=== PATIENT | female | born 1975 | race African-American/Black ===

== ENCOUNTER 2019-09-14 05:39 | Emergency (ER) | payer OTHER ==
[~2019-09-14] VITALS: Ht 165.1 cm; Wt 158.8 kg
[2019-09-14 06:17] LABS: ABSOLUTE BASOPHILS 0.1 thou/uL (0.0-0.2); ABSOLUTE EOSINOPHILS 0.3 thou/uL (0.0-0.7); ABSOLUTE LYMPHOCYTES 3.2 thou/uL (0.8-5.3); ABSOLUTE MONOCYTES 0.6 thou/uL (0.0-1.2); ABSOLUTE NEUTROPHILS 5.3 thou/uL (1.6-8.1); BASOPHILS 1.1 %; EOSINOPHILS 2.7 %; HEMATOCRIT 34.8 % (37.0-47.0); HEMOGLOBIN 11.6 gm/dL (12.0-15.0); LYMPHOCYTES 33.8 %; MCH 27.8 pg (26.0-34.0); MCHC 33.3 g/dL (28.0-37.0); MCV 83.4 fL (80.0-100.0); MPV 9.3 fl. (7.2-11.1); NUCLEATED RBCS 0 /100WBC; PLATELET COUNT* 226 thou/uL (150-400); POLYS 56.4 %; RBC 4.18 mil/uL (4.20-5.00); RDW-CV 15.5 % (10.5-14.5); WBC 9.4 thou/uL (4.0-11.0)
[2019-09-14 06:26] LABS: CALCIUM 8.9 mg/dL (8.5-10.1); CREATININE 0.8 mg/dL (0.6-1.3); POTASSIUM 4.8 mmol/L (3.5-5.1)
[2019-09-14 06:29] LABS: INR 0.9; PROTIME 9.7 Seconds (9.20-11.50)
[2019-09-14 06:38] LABS: ALBUMIN 3.1 g/dL (3.4-5.0); TOTAL BILIRUBIN 0.3 mg/dL (<0.1-1.0); TOTAL PROTEIN 7.5 g/dL (6.4-8.2)
[2019-09-14 07:00] LABS: INFLUENZA A ANTIGEN Negative (Negative); INFLUENZA B ANTIGEN Negative (Negative)
[2019-09-14] MEDS ORDERED: PREDNISONE 20 M20 M1 PO (09:02)
[2019-09-14 09:32] VITALS: BP 110/65
--- NOTE | 2019-09-14 13:55 | EKG ---
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 : 1975 Requested By: Mariangel Holloway Order Number: [id number] MD: Theodore Coleman Measurements Intervals [place] Rate: 92 P: 67 [place]: 153 QRS: 13 QRSD: 84 T: -9 QT: 349 QTc: 432 Interpretive Statements Sinus rhythm Low voltage, precordial leads Borderline T abnormalities, inferior leads Compared to ECG 11/23/2005 12:35:47 no change Electronically Signed On 09-14-2019 13:54:53 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
== END 2019-09-14 09:36 | disposition home or self-care (01) ==
LOC: M.ERS 05:39
PROVIDERS: Emergency Medicine
DX: R07.89 Other chest pain (principal); R05 Cough; Z87.01 Personal history of pneumonia (recurrent)

== ENCOUNTER 2020-01-20 09:34 | Emergency (ER) | payer OTHER ==
[~2020-01-20] VITALS: Ht 165.1 cm; Wt 158.8 kg
[~2020-01-20 09:34] MED LIST: PREDNISONE 20 M20 M1 PO
[2020-01-20] MEDS ORDERED: ODOR FREE GARL1 EAC1 PO (09:49)
[2020-01-20] MEDS ORDERED: FISH OIL 1,001000 M3 PO (09:49)
[2020-01-20] MEDS ORDERED: APPLE CIDER VI300 MG PO (09:49)
[2020-01-20] MEDS ORDERED: MICARDIS 20MG T20 M1 PO (09:49)
[2020-01-20] MEDS ORDERED: MELOXICAM7.5 MG PO (09:49)
[2020-01-20 10:34] LABS: ABSOLUTE EOSINOPHILS 0.2 thou/uL (0.0-0.7); ABSOLUTE LYMPHOCYTES 2.3 thou/uL (0.8-5.3); ABSOLUTE MONOCYTES 0.6 thou/uL (0.0-1.2); ABSOLUTE NEUTROPHILS 4.7 thou/uL (1.6-8.1); BASOPHILS 0.2 %; EOSINOPHILS 2.9 %; HEMATOCRIT 36.9 % (37.0-47.0); LYMPHOCYTES 29.6 %; MCH 27.4 pg (26.0-34.0); MCHC 32.7 g/dL (28.0-37.0); MONOCYTES 7.1 %; MPV 9.4 fl. (7.2-11.1); NUCLEATED RBCS 0 /100WBC; PLATELET COUNT* 246 thou/uL (150-400); POLYS 60.2 %; RBC 4.39 mil/uL (4.20-5.00); RDW-CV 14.3 % (10.5-14.5); WBC 7.8 thou/uL (4.0-11.0)
[2020-01-20 10:44] LABS: CALCIUM 8.9 mg/dL (8.5-10.1); CREATININE 0.7 mg/dL (0.6-1.3); POTASSIUM 4.1 mmol/L (3.5-5.1)
[2020-01-20 10:54] LABS: ALBUMIN 3.4 g/dL (3.4-5.0); TOTAL BILIRUBIN 0.2 mg/dL (<0.1-1.0); TOTAL PROTEIN 7.4 g/dL (6.4-8.2)
[2020-01-20 11:41] VITALS: BP 141/80
--- NOTE | 2020-01-20 14:32 | EKG ---
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 : 1975 Requested By: Pranav Issa Order Number: [id number] MD: Eran Sharp Measurements Intervals [place] Rate: 69 P: 56 [place]: 51 QRS: 29 QRSD: 85 T: 10 QT: 409 QTc: 438 Interpretive Statements Sinus rhythm Short [place] interval Low voltage, precordial leads Compared to ECG 09/14/2019 05:44:58 Short [place] interval now present T-wave abnormality no longer present Electronically Signed On 01-20-2020 14:30:23 CDT by Eran Sharp [email or web address] <ELECTRONICALLY SIGNED> By: Eran Sharp MD, [facility] 01/20/20 1430 0959 0959 Eran Sharp MD, [facility] /EPI
== END 2020-01-20 11:41 | disposition home or self-care (01) ==
LOC: M.ERS 09:34
PROVIDERS: Family Medicine
DX: R10.13 Epigastric pain (principal); I10 Essential (primary) hypertension; Z90.49 Acquired absence of other specified parts of digestive tract; Z87.01 Personal history of pneumonia (recurrent); Z88.0 Allergy status to penicillin; Z90.721 Acquired absence of ovaries, unilateral

== ENCOUNTER 2020-03-25 09:29 | Emergency (ER) | payer OTHER ==
[~2020-03-25] VITALS: Ht 165.1 cm; Wt 163.3 kg
[~2020-03-25 09:29] MED LIST changes: +APPLE CIDER VI300 MG PO; +FISH OIL 1,001000 M3 PO; +MELOXICAM7.5 MG PO; +MICARDIS 20MG T20 M1 PO; +ODOR FREE GARL1 EAC1 PO
[2020-03-25] MEDS ORDERED: HYDROCHLOROTHIA25 M2 PO (09:31)
[2020-03-25] MEDS ORDERED: MELOXICAM15 MG PO (09:33)
[2020-03-25 11:05] LABS: ABSOLUTE BASOPHILS 0.1 thou/uL (0.0-0.2); ABSOLUTE EOSINOPHILS 0.2 thou/uL (0.0-0.7); ABSOLUTE LYMPHOCYTES 1.7 thou/uL (0.8-5.3); ABSOLUTE MONOCYTES 0.5 thou/uL (0.0-1.2); ABSOLUTE NEUTROPHILS 4.9 thou/uL (1.6-8.1); BASOPHILS 0.8 %; EOSINOPHILS 2.8 %; HEMATOCRIT 37.8 % (37.0-47.0); HEMOGLOBIN 12.5 gm/dL (12.0-15.0); LYMPHOCYTES 23.7 %; MCH 27.4 pg (26.0-34.0); MONOCYTES 6.2 %; MPV 9.2 fl. (7.2-11.1); NUCLEATED RBCS 0 /100WBC; PLATELET COUNT* 251 thou/uL (150-400); POLYS 66.5 %; RBC 4.55 mil/uL (4.20-5.00); RDW-CV 14.8 % (10.5-14.5); WBC 7.3 thou/uL (4.0-11.0)
[2020-03-25 11:20] LABS: APTT 26.2 Seconds (25.0-31.3)
[2020-03-25 12:11] VITALS: BP 112/70
[2020-03-29] MEDS ORDERED: PROBIOTIC1 EAC7 PO (07:36)
[2020-03-29] MEDS ORDERED: BACTRIM DS TAB1 EACH PO (07:36)
[2020-04-04] MEDS ORDERED: LORCET 5-325 M1 EACH PO (14:09)
== END 2020-03-25 12:12 | disposition home or self-care (01) ==
LOC: M.ERS 09:29
PROVIDERS: Personal Emergency Response Attendant
DX: R04.0 Epistaxis (principal); I10 Essential (primary) hypertension; Z90.49 Acquired absence of other specified parts of digestive tract; Z88.0 Allergy status to penicillin

== ENCOUNTER 2020-04-03 16:04 | Emergency (ER) | payer OTHER ==
[~2020-04-03] VITALS: Ht 165.1 cm; Wt 163.3 kg
[~2020-04-03 16:04] MED LIST changes: +BACTRIM DS TAB1 EACH PO; +HYDROCHLOROTHIA25 M2 PO; +MELOXICAM15 MG PO; +PROBIOTIC1 EAC7 PO
[2020-04-03 16:37] LABS: ABSOLUTE BASOPHILS 0.1 thou/uL (0.0-0.2); ABSOLUTE EOSINOPHILS 0.2 thou/uL (0.0-0.7); ABSOLUTE LYMPHOCYTES 2.8 thou/uL (0.8-5.3); ABSOLUTE MONOCYTES 0.6 thou/uL (0.0-1.2); ABSOLUTE NEUTROPHILS 4.1 thou/uL (1.6-8.1); BASOPHILS 0.9 %; EOSINOPHILS 2.4 %; HEMATOCRIT 37.4 % (37.0-47.0); HEMOGLOBIN 12.4 gm/dL (12.0-15.0); LYMPHOCYTES 35.5 %; MCH 27.3 pg (26.0-34.0); MCV 82.6 fL (80.0-100.0); MONOCYTES 8.1 %; MPV 9.4 fl. (7.2-11.1); NUCLEATED RBCS 0 /100WBC; PLATELET COUNT* 267 thou/uL (150-400); POLYS 53.1 %; RBC 4.53 mil/uL (4.20-5.00); RDW-CV 15.1 % (10.5-14.5); WBC 7.8 thou/uL (4.0-11.0)
[2020-04-03 16:46] LABS: CALCIUM 8.9 mg/dL (8.5-10.1); CREATININE 0.9 mg/dL (0.6-1.3); POTASSIUM 4.1 mmol/L (3.5-5.1)
[2020-04-03 16:50] LABS: ALBUMIN 3.6 g/dL (3.4-5.0); TOTAL BILIRUBIN 0.4 mg/dL (<0.1-1.0); TOTAL PROTEIN 7.8 g/dL (6.4-8.2)
[2020-04-03 16:51] LABS: APTT 25.9 Seconds (25.0-31.3); PROTIME 10.2 Seconds (9.20-11.50)
[2020-04-03] MEDS ORDERED: MEDROLDOSEPACK PO (18:38)
[2020-04-03] MEDS ORDERED: NORFLEX100 MG PO (18:38)
[2020-04-03 18:50] VITALS: BP 129/72
--- NOTE | 2020-04-04 09:41 | EKG ---
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 : 1975 Requested By: Carly Lutz Order Number: [id number] MD: Eran Sharp Measurements Intervals [place] Rate: 83 P: 68 [place]: 139 QRS: 21 QRSD: 91 T: -2 QT: 367 QTc: 432 Interpretive Statements Sinus arrhythmia Possible left atrial enlargement Compared to ECG 01/20/2020 09:59:42 Sinus rhythm no longer present Short [place] interval no longer present Electronically Signed On 04-04-2020 9:41:00 CDT by Eran Sharp [email or web address] <ELECTRONICALLY SIGNED> By: Eran Sharp MD, [facility] 04/04/20 0941 1609 1609 Eran Sharp MD, [facility] /EPI
[2020-04-04] MEDS ORDERED: LORCET 5-325 M1 EACH PO (14:09)
== END 2020-04-03 18:50 | disposition home or self-care (01) ==
LOC: M.ERS 16:04
PROVIDERS: Personal Emergency Response Attendant
DX: M79.18 Myalgia, other site (principal); R07.89 Other chest pain; I10 Essential (primary) hypertension; Z90.722 Acquired absence of ovaries, bilateral; Z90.49 Acquired absence of other specified parts of digestive tract; Z88.0 Allergy status to penicillin

== ENCOUNTER → 2020-04-04 | Day surgery (SDC) | payer OTHER ==
[~2020-04-04] MED LIST changes: +LORCET 5-325 M1 EACH PO; +MEDROLDOSEPACK PO; +NORFLEX100 MG PO
--- NOTE | 2020-04-05 21:16 | OP ---
[address] [address] OPERATIVE REPORT Name: CHEYANNE COYLE Room: [facility]#: [id number] Admission: 04/04/20 Attend Phys: Hay Chirinos II Discharge: Date of : [birth year] Report #: [id number] THIS REPORT FOR: //name// cc: Maya Hagen MD, Ghazal A. MD ~ THIS REPORT FOR: //name// CC: Maya Chirinos DATE OF SERVICE: 04/04/2020 PREOPERATIVE DIAGNOSIS: Right knee lateral meniscus tear. POSTOPERATIVE DIAGNOSES: 1. Right knee lateral meniscus tear. 2. Grade 3 chondromalacia, patellofemoral groove. 3. Grade 3 chondromalacia, lateral femoral condyle. PROCEDURES PERFORMED: 1. Right knee arthroscopic surgery with partial lateral meniscectomy. 2. Abrasion chondroplasty, patellofemoral groove down to bleeding bone. 3. Abrasion chondroplasty of lateral femoral condyle down to bleeding bone. SURGEON: Hay Chirinos II, DO. WELL SERVICE FLOOR WORKER: KARLEY Rivera. ANESTHESIA: Per operative record. ESTIMATED BLOOD LOSS: Minimal. ANTIBIOTICS: Per operative record. DRAINS: None. COMPLICATIONS: None. CONDITION OF THE PATIENT: Stable to recovery room. INTRAOPERATIVE EVALUATION: Prior to the surgery, the patient had previous knee scope with partial lateral meniscectomy. States that she never felt right, and upon new MRI after that surgery, had continuation of the lateral meniscus tear. The patient was discussed possibility of resecting this to give her further relief, although due to significant chondromalacia, the patient may still have continued complaints. During intraoperative evaluation also the camera system [address] [address] OPERATIVE REPORT Name: CHEYANNE COYLE Room: [facility].#: [id number] Admission: 04/04/20 Attend Phys: Hay Chirinos II Discharge: Date of : [birth year] Report #: [id number] did work, but the pictures did not capture due to hardware failure of the capturing device as well as printer. The procedure was performed as above. DESCRIPTION OF PROCEDURE: The patient was taken to the operative suite and placed supine on the operative table, given appropriate ____ anesthesia. The patient's affected lower extremity was sterilely prepped and draped in a well-padded knee arthroscopic florentino. Surgery began by midline portal incision. The arthroscope was advanced in the joint. There was shown to be grade 3 chondromalacia of the patellofemoral groove. Utilizing a shaver, an abrasion chondroplasty was performed down to bleeding bone and then smoothed using Coblation wand. There was shown to be grade 3 chondromalacia of lateral femoral condyle. Utilizing shaver abrasion chondroplasty was performed to bleeding bone and then smoothed utilizing Coblation wand. Lateral meniscus was probed and shown to have a tear along the posterior horn as well as extending around to the lateral margin with flap component. A partial meniscectomy was performed utilizing baskets and shaver to ____ the torn flap along the lateral meniscus and then smoothed utilizing Coblation wand. A medial meniscus was probed and shown to be intact. ACL and PCL were intact. Final irrigation was then performed of the knee. The knee was ____, closed with 4-0 nylon in simple fashion. Dermabond and sterile dressing applied. The patient transported to recovery room in stable condition. Counts were correct throughout the procedure. <ELECTRONICALLY SIGNED> By: Hay Chirinos II, DO 04/05/20 2116 0223 0348Hay Chirinos II, DO /nt
== END | disposition home or self-care (01) ==
LOC: M.SUR 09:05 → M.CL 16:24 → EDSTATUS 16:55
PROVIDERS: ATTEND Orthopaedic Surgery
DX: S83.281A Other tear of lateral meniscus, current injury, right knee, initial encounter (principal); S83.231A Complex tear of medial meniscus, current injury, right knee, initial encounter; M94.261 Chondromalacia, right knee; Z11.59 Encounter for screening for other viral diseases; M25.461 Effusion, right knee; M25.561 Pain in right knee; I10 Essential (primary) hypertension; Z79.899 Other long term (current) drug therapy; Z88.8 Allergy status to other drugs, medicaments and biological substances; Z90.710 Acquired absence of both cervix and uterus; Z98.890 Other specified postprocedural states; X58.XXXA Exposure to other specified factors, initial encounter; Y93.89 Activity, other specified; Y92.89 Other specified places as the place of occurrence of the external cause; Y99.8 Other external cause status

== ENCOUNTER 2020-05-18 16:31 | Emergency (ER) | payer OTHER ==
[~2020-05-18] VITALS: Ht 165.1 cm; Wt 169.2 kg
[2020-05-18 18:14] LABS: ABSOLUTE BASOPHILS 0.1 thou/uL (0.0-0.2); ABSOLUTE EOSINOPHILS 0.3 thou/uL (0.0-0.7); ABSOLUTE LYMPHOCYTES 2.7 thou/uL (0.8-5.3); ABSOLUTE MONOCYTES 0.6 thou/uL (0.0-1.2); ABSOLUTE NEUTROPHILS 5.3 thou/uL (1.6-8.1); BASOPHILS 1.2 %; EOSINOPHILS 3.4 %; HEMATOCRIT 38.3 % (37.0-47.0); HEMOGLOBIN 12.6 gm/dL (12.0-15.0); LYMPHOCYTES 30.1 %; MCH 27.6 pg (26.0-34.0); MCV 83.5 fL (80.0-100.0); MONOCYTES 6.6 %; NUCLEATED RBCS 0 /100WBC; PLATELET COUNT* 247 thou/uL (150-400); POLYS 58.7 %; RBC 4.59 mil/uL (4.20-5.00); RDW-CV 15.4 % (10.5-14.5)
[2020-05-18 18:24] LABS: CREATININE 0.8 mg/dL (0.6-1.3); POTASSIUM 4.5 mmol/L (3.5-5.1)
[2020-05-18 18:35] LABS: ALBUMIN 3.5 g/dL (3.4-5.0); TOTAL BILIRUBIN 0.3 mg/dL (<0.1-1.0); TOTAL PROTEIN 7.7 g/dL (6.4-8.2)
[2020-05-18] MEDS ORDERED: TRANSDERM-SCOP1 EACH TRANSDERM (20:34)
[2020-05-18 20:59] VITALS: BP 128/78
--- NOTE | 2020-05-19 11:04 | EKG ---
[place] [address] ELECTROCARDIOGRAM REPORT Name: APRYL COYLEVALENCIA Guo Room: [facility]#: [id number] Admission: 05/18/20 Attend Phys: Discharge: 05/18/20 Date of : [birth year] Date of Service: 05/18/20 1717 Report #: [id number] THIS REPORT FOR: //name// [facility] ED Test Date: 2020-05-18 Test Time: 17:17:05 Pat Name: CHEYANNE COYLE Department: Room: Gender: Intake Rn: CODY : 1975 Requested By: Kathi Banerjee Order Number: [id number] MD: Theodore Coleman Measurements Intervals [place] Rate: 82 P: 48 [place]: 166 QRS: 14 QRSD: 170 T: -7 QT: 398 QTc: 465 Interpretive Statements Sinus rhythm Nonspecific intraventricular conduction delay Compared to ECG 04/03/2020 16:09:03 Intraventricular conduction delay now present Sinus arrhythmia no longer present Electronically Signed On 05-19-2020 11:04:33 CDT by Theodore Coleman [email or web address] <ELECTRONICALLY SIGNED> By: Theodore Coleman MD, [facility] 05/19/20 1104 1717 1717 Theodore Coleman MD, [facility] /EPI
== END 2020-05-18 21:00 | disposition home or self-care (01) ==
LOC: M.ERS 16:31
PROVIDERS: Nurse Practitioner Family
DX: H81.10 Benign paroxysmal vertigo, unspecified ear (principal); R60.0 Localized edema; R07.89 Other chest pain; H53.8 Other visual disturbances; Z79.899 Other long term (current) drug therapy; Z88.0 Allergy status to penicillin

== ENCOUNTER 2020-12-16 11:30 | Emergency (ER) | payer OTHER ==
[~2020-12-16] VITALS: Ht 165.1 cm; Wt 123.8 kg
[~2020-12-16 11:30] MED LIST changes: +TRANSDERM-SCOP1 EACH TRANSDERM
[2020-12-16] MEDS ORDERED: SUPER THERAVIT1 EACH PO (11:42)
[2020-12-16] MEDS ORDERED: CALCIUM500 MG PO (11:43)
[2020-12-16] MEDS ORDERED: ZINC10 MG PO (11:43)
[2020-12-16] MEDS ORDERED: MAGNESIUM250 M1 PO (11:43)
[2020-12-16] MEDS ORDERED: FISH OIL 1,0001 EAC9 PO (11:43)
[2020-12-16 12:26] LABS: HEMATOCRIT 37.9 % (37.0-47.0); HEMOGLOBIN 12.3 gm/dL (12.0-15.0); MCH 27.5 pg (26.0-34.0); MCHC 32.3 g/dL (28.0-37.0); MCV 85.2 fL (80.0-100.0); MPV 9.4 fl. (7.2-11.1); NUCLEATED RBCS 0 /100WBC; PLATELET COUNT* 207 thou/uL (150-400); RBC 4.45 mil/uL (4.20-5.00); RDW-CV 15.6 % (10.5-14.5); WBC 6.3 thou/uL (4.0-11.0)
[2020-12-16 12:35] LABS: ANION GAP 6 mmol/L (7-16); BUN 15 mg/dL (7-18); CALCIUM 8.9 mg/dL (8.5-10.1); CHLORIDE 109 mmol/L (98-107); CO2 29 mmol/L (21-32); CREATININE 0.7 mg/dL (0.6-1.3); GLUCOSE 90 mg/dL (70-99); POTASSIUM 4.1 mmol/L (3.5-5.1); SODIUM 144 mmol/L (136-145)
[2020-12-16 12:39] LABS: APTT 25.2 Seconds (25.0-31.3); PROTIME 10.8 Seconds (9.20-11.50)
[2020-12-16 12:45] LABS: ABSOLUTE BASOPHILS 0.2 thou/uL (0.0-0.2); ABSOLUTE EOSINOPHILS 0.7 thou/uL (0.0-0.7); ABSOLUTE LYMPHOCYTES 2.3 thou/uL (0.8-5.3); ABSOLUTE MONOCYTES 0.6 thou/uL (0.0-1.2); ABSOLUTE NEUTROPHILS 2.5 thou/uL (1.6-8.1)
[2020-12-16 12:46] LABS: PLATELET ESTIMATE ADEQUATE
[2020-12-16 12:50] LABS: ALBUMIN 3.3 g/dL (3.4-5.0); ALKALINE PHOSPHATASE 125 U/L (46-116); CK-MB MASS < 0.5 ng/mL (<0.5-3.6); LIPASE 134 U/L (73-393); MAGNESIUM 2.1 mg/dL (1.8-2.4); NT-PRO BRAIN NAT PEPTIDE 89 pg/mL (<300); SGOT 16 U/L (15-37); SGPT 25 U/L (30-65); TOTAL BILIRUBIN 0.4 mg/dL (<0.1-1.0); TOTAL PROTEIN 7.4 g/dL (6.4-8.2)
[2020-12-16 13:13] VITALS: BP 120/55
--- NOTE | 2020-12-18 11:11 | EKG ---
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 : 1975 Requested By: Pranav Issa Order Number: [id number] MD: Theodore Coleman Measurements Intervals [place] Rate: 60 P: 13 [place]: 144 QRS: 16 QRSD: 95 T: 4 QT: 451 QTc: 451 Interpretive Statements Sinus rhythm Borderline T abnormalities, anterior leads Baseline wander in lead(s) II,III,aVF Compared to ECG 05/18/2020 17:17:05 T-wave abnormality now present Electronically Signed On 12-18-2020 11:11:26 CDT by Theodore Coleman [email or web address] <ELECTRONICALLY SIGNED> By: Theodore Coleman MD, [facility] 12/18/20 1111 1135 1135 Theodore Coleman MD, [facility] /EPI
== END 2020-12-16 13:13 | disposition home or self-care (01) ==
LOC: M.ERS 11:30
PROVIDERS: Family Medicine
DX: R07.89 Other chest pain (principal); E66.01 Morbid (severe) obesity due to excess calories; Z68.42 Body mass index [BMI] 45.0-49.9, adult; Z88.0 Allergy status to penicillin; Z90.89 Acquired absence of other organs; Z77.22 Contact with and (suspected) exposure to environmental tobacco smoke (acute) (chronic)